=== PATIENT | female | born 1970 | race Caucasian/White ===

== ENCOUNTER 2018-04-14 08:41 | Emergency (ER) | payer SELFPAY ==
[2018-04-14] MEDS ORDERED: AMOXicillin 250 MG CAP ONE (09:08)
[2018-04-14] MEDS ORDERED: Ketorolac Tromethamine 30 MG/ML VIAL ONE (09:08)
[2018-04-14] MEDS ORDERED: Acetaminophen 325 MG TAB ONE (14:51)
== END 2018-04-14 10:00 | disposition home or self-care (01) ==
LOC: BURERS 08:41
DX: K04.7 Periapical abscess without sinus (principal); F32.9 Major depressive disorder, single episode, unspecified; F17.210 Nicotine dependence, cigarettes, uncomplicated
CPT/HCPCS: 96372; J1885

== ENCOUNTER 2021-10-02 07:04 | Emergency (ER) | payer OTHER, SELFPAY ==
[2021-10-02 21:48] LABS: SARS-CoV-2 PCR by NAA DETECTED (NotDetected)
== END 2021-10-02 08:30 | disposition home or self-care (01) ==
LOC: BURERS 07:04
DX: U07.1 COVID-19 (principal); F17.210 Nicotine dependence, cigarettes, uncomplicated
CPT/HCPCS: 99283; U0003; U0005

== ENCOUNTER 2022-08-26 11:56 | Emergency (ER) | payer OTHER, SELFPAY | END 2022-08-26 12:40 | disposition home or self-care (01) | LOC: BURERS 11:56 | DX: S92.511A Displaced fracture of proximal phalanx of right lesser toe(s), initial encounter for closed fracture (principal); F17.210 Nicotine dependence, cigarettes, uncomplicated; W20.8XXA Other cause of strike by thrown, projected or falling object, initial encounter | CPT/HCPCS: 28515 ==